=== PATIENT | female | born 1995 | race Caucasian/White ===

== ENCOUNTER 2021-10-28 12:43 | Outpatient (CLI) | payer OTHER, SELFPAY ==
[2021-10-28 13:34] LABS: Beta HCG Quantitative 287.89 mIU/ML
== END 2021-10-28 12:44 | disposition home or self-care (01) ==
PROVIDERS: Visit Provider Student in an Organized Health Care Education/Training Program
DX: O03.9 Complete or unspecified spontaneous abortion without complication (principal)
CPT/HCPCS: 36415; 84702; 86850; 86900; 86901

== ENCOUNTER 2021-11-17 12:42 | Outpatient (CLI) | payer OTHER, SELFPAY ==
[2021-11-17 14:37] LABS: Beta HCG Quantitative < 2.39 mIU/ML
== END 2021-11-17 12:43 | disposition home or self-care (01) ==
PROVIDERS: Visit Provider Student in an Organized Health Care Education/Training Program
DX: O03.9 Complete or unspecified spontaneous abortion without complication (principal)
CPT/HCPCS: 36415; 84702

== ENCOUNTER 2022-05-13 11:16 | Outpatient (CLI) | payer OTHER, SELFPAY ==
[2022-05-13 12:10] LABS: Beta HCG Quantitative 7.52 mIU/ML
[2022-05-17 07:27] LABS: Progesterone 22.5 ng/mL (***)
== END 2022-05-13 11:17 | disposition home or self-care (01) ==
LOC: ANHLAB 11:19
PROVIDERS: Visit Provider Student in an Organized Health Care Education/Training Program
DX: Z87.59 Personal history of other complications of pregnancy, childbirth and the puerperium (principal); Z32.01 Encounter for pregnancy test, result positive
CPT/HCPCS: 36415; 84144; 84702

== ENCOUNTER 2022-05-15 11:11 | Outpatient (RCR) | payer OTHER, SELFPAY ==
[2022-02-17 15:29] LABS: Beta HCG Quantitative < 2.39 mIU/ML
[2022-02-22 08:15] LABS: Progesterone 9.4 ng/mL (***)
[2022-05-15 12:11] LABS: Beta HCG Quantitative 30.26 mIU/ML
== END 2022-05-18 23:59 | disposition home or self-care (01) ==
LOC: ANHLAB 11:11
PROVIDERS: Visit Provider Student in an Organized Health Care Education/Training Program
DX: O26.20 Pregnancy care for patient with recurrent pregnancy loss, unspecified trimester (principal); Z87.59 Personal history of other complications of pregnancy, childbirth and the puerperium; Z3A.00 Weeks of gestation of pregnancy not specified
CPT/HCPCS: 36415; 84144; 84702

== ENCOUNTER 2022-05-31 08:25 | Outpatient (CLI) | payer OTHER, SELFPAY | END 2022-05-31 08:26 | disposition home or self-care (01) | LOC: ANHLAB 08:27 | PROVIDERS: Visit Provider Student in an Organized Health Care Education/Training Program | DX: E34.9 Endocrine disorder, unspecified (principal) | CPT/HCPCS: 36415; 84702 ==

== ENCOUNTER 2022-06-10 09:25 | Outpatient (CLI) | payer OTHER, SELFPAY | END 2022-06-10 09:26 | disposition home or self-care (01) | LOC: ANHLAB 09:28 | PROVIDERS: Visit Provider Student in an Organized Health Care Education/Training Program | DX: E34.9 Endocrine disorder, unspecified (principal) | CPT/HCPCS: 36415; 84702 ==

== ENCOUNTER 2022-06-15 13:15 | Outpatient (CLI) | payer BC, SELFPAY ==
--- NOTE | ~2022-06-15 | US_ITS ---
EXAMINATION: US OB <=14 wk fetus w TV DATE: 06/15/2022 13:50 INDICATION: First trimester dating TECHNIQUE: Real-time pelvic transabdominal and transvaginal ultrasound was performed. COMPARISON: None. FINDINGS: The uterus measures 8.4 x 3.8 x 4.5 cm. There is an intrauterine fluid collection measurin g 8 mm. There is a 1.4 x 0.7 x 0.2 cm hypoechoic area adjacent to the gestational sac. The right ovary measures 2.9 x 1.5 x 1.8 cm. The left ovary measures 3.2 x 2.3 x 2.3 cm. There is nor mal vascular flow in the ovaries. There is no free fluid in the pelvis. IMPRESSION: 1. Intrauterine fluid collection measuring 8 mm, likely early . 2. Small subchorionic hematoma. Reviewed, dictated and finalized at location B.
== END 2022-06-15 13:16 ==
PROVIDERS: PCP Student in an Organized Health Care Education/Training Program; Visit Provider Student in an Organized Health Care Education/Training Program
DX: E34.9 Endocrine disorder, unspecified (principal); O36.8911 Maternal care for other specified fetal problems, first trimester, fetus 1; Z3A.00 Weeks of gestation of pregnancy not specified
CPT/HCPCS: 76801; 76817

== ENCOUNTER 2022-07-19 12:35 | Outpatient (CLI) | payer BC, SELFPAY | END 2022-07-19 12:36 | disposition home or self-care (01) | PROVIDERS: PCP Student in an Organized Health Care Education/Training Program; Visit Provider Student in an Organized Health Care Education/Training Program | DX: O03.9 Complete or unspecified spontaneous abortion without complication (principal) | CPT/HCPCS: 36415; 84702 ==

== ENCOUNTER 2022-07-21 09:07 | Outpatient (CLI) | payer BC, SELFPAY ==
[2022-07-21 10:08] LABS: Beta HCG Quantitative 130.88 mIU/ML
[2022-07-24 08:06] LABS: Progesterone 12.7 ng/mL (***)
== END 2022-07-21 09:08 | disposition home or self-care (01) ==
LOC: ANHLAB 09:08
PROVIDERS: PCP Student in an Organized Health Care Education/Training Program; Visit Provider Student in an Organized Health Care Education/Training Program
DX: Z87.59 Personal history of other complications of pregnancy, childbirth and the puerperium (principal)
CPT/HCPCS: 36415; 84144; 84702

== ENCOUNTER 2022-08-02 10:10 | Outpatient (CLI) | payer BC, SELFPAY | END 2022-08-02 10:11 | disposition home or self-care (01) | LOC: ANHLAB 10:11 | PROVIDERS: PCP Student in an Organized Health Care Education/Training Program; Visit Provider Student in an Organized Health Care Education/Training Program | DX: E34.9 Endocrine disorder, unspecified (principal) | CPT/HCPCS: 36415; 84702 ==

== ENCOUNTER 2022-08-17 09:30 | Outpatient (CLI) | payer BC, SELFPAY ==
--- NOTE | ~2022-08-17 | US_ITS ---
EXAMINATION: US OB <=14 wk fetus w TV DATE: 08/17/2022 11:25 INDICATION: Uncertain dates. . TECHNIQUE: Real-time transabdominal and transvaginal pelvic ultrasound was performed. COMPARISON: Ultrasound 06/15/22 FINDINGS: TRANSABDOMINAL ULTRASOUND: The uterus measures 11.4 x 7.0 x 5.9 cm. TRANSVAGINAL ULTRASOUND: There is an intrauterine gestational sac. A yolk sac is identified. The fet al crown rump length measures 1.7 cm, which correlates with an estimated gestational age of 8 weeks a nd 1 day(s) (+/-) 5 day(s). heart motion is identified measuring 167 beats per minute (bpm) by M-mode Doppler. There is a small subchorionic hematoma. The right ovary measures 2.3 x 0.9 x 1.2 cm. The left ovary measures 2.5 x 1.8 x 1.9 cm. There is no free fluid in the pelvis. IMPRESSION: 1. Single living intrauterine gestation with estimated date of delivery of 03/28/2023. 2. Small subchorionic hematoma. Reviewed, dictated and finalized at location A. 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 Single living intrauterine gestation with estimated date of delivery of 03/10. 2. Small subchorionic hematoma.
== END 2022-08-17 09:31 | disposition home or self-care (01) ==
PROVIDERS: PCP Student in an Organized Health Care Education/Training Program; Visit Provider Student in an Organized Health Care Education/Training Program
DX: O36.8911 Maternal care for other specified fetal problems, first trimester, fetus 1 (principal); E34.9 Endocrine disorder, unspecified; Z3A.00 Weeks of gestation of pregnancy not specified
CPT/HCPCS: 76801; 76817